=== PATIENT | female | born 1975 | race African-American/Black ===

== ENCOUNTER 2018-04-04 09:03 | Outpatient (CLI) | payer BC ==
--- NOTE | 2018-04-04 13:00 | Ultrasound Report ---
LEFT BREAST ULTRASOUND: 04/04/18 09:03:00 CLINICAL: Abnormal screening mammogram with an upper-outer focal asymmetry and negative ultrasound. COMPARISON: 01/27/18 mammogram and 02/10/18 ultrasound from [facility]. FINDINGS: Ultrasound of the upper and outer left breast was performed and demonstrated no mass or cyst to correlate with the mammographic asymmetry 8 cm from the nipple at 2 o'clock.A benign 4 mm intramammary lymph node with central echogenic fat at 1 o'clock 4 cm from the nipple. This lymph node is too close to the nipple and about half the size of the mammographic density. Ultrasound of the left axilla demonstrated no suspicious lymph nodes. IMPRESSION: Negative left breast ultrasound with a benign intramammary lymph node at 1 o'clock 4 cm from the nipple. A probably benign mammographic asymmetry. BI-RADS 3 - - Probably Benign RECOMMENDATION: Short-term followup left mammogram in 3 months and left breast ultrasound if needed at the time of the mammogram.
== END 2018-04-04 09:04 | disposition home or self-care (01) ==
LOC: SPVWC 09:03
PROVIDERS: ATTEND Surgery
DX: N63.20 Unspecified lump in the left breast, unspecified quadrant (principal)

== ENCOUNTER 2020-02-14 13:13 | Outpatient (CLI) | payer BC | END 2020-02-14 13:14 | disposition home or self-care (01) | LOC: SPVWC 13:13 | PROVIDERS: ATTEND Surgery | DX: Z12.31 Encounter for screening mammogram for malignant neoplasm of breast (principal) | CPT/HCPCS: 77063; 77067 ==